=== PATIENT | male | born 1950 | race Two or more races ===

== ENCOUNTER 2017-09-07 14:56 | Emergency (ER) | payer OTHER ==
[~2017-09-07] VITALS: Ht 170.2 cm; Wt 97.2 kg
[2017-09-07] MEDS ORDERED: SODIUM CHLORIDE FLUSH 10ML SYR IVF ONE (16:00)
[2017-09-07] MEDS ORDERED: LISI-170 PO (16:04)
[2017-09-07] MEDS ORDERED: ATOR40TA PO (16:04)
[2017-09-07] MEDS ORDERED: OMEP-110 PO (16:04)
[2017-09-07 16:37] LABS: BASOPHILS # (AUTO) 0.04 x10^3/uL (0-0.1); BASOPHILS % (AUTO) 1 % (0-1); EOSINOPHILS # (AUTO) 0.11 x10^3/uL (0-0.4); EOSINOPHILS % (AUTO) 1 % (1-7); LYMPHOCYTES # (AUTO) 2.14 x10^3/uL (1-3.4); LYMPHOCYTES % (AUTO) 26 % (22-44); MD NO; MEAN CORPUSCULAR HEMOGLOBIN 31.7 pg (27.5-34.5); MEAN CORPUSCULAR VOLUME 96.1 fL (81-97); MEAN PLATELET VOLUME 9.6 fL (7.4-10.4); MONOCYTES # (AUTO) 0.78 x10^3/uL (0.2-0.8); MONOCYTES % (AUTO) 10 % (2-9); NEUTROPHILS # (AUTO) 5.13 x10^3/uL (1.8-6.8); NEUTROPHILS % (AUTO) 63 % (42-75); PLATELET COUNT 203 x10^3/uL (130-400); RED BLOOD COUNT 5.83 x10^6/uL (4.38-5.82); RED CELL DISTRIBUTION WIDTH 13.3 % (9.4-14.8)
[2017-09-07 17:33] LABS: ANION GAP 1 mmol/L (5-15); CHLORIDE 106 mmol/L (98-107)
[2017-09-07 17:34] LABS: CREATININE 1.09 mg/dL (0.7-1.3)
[2017-09-07] MEDS ORDERED: OMNIPAQUE 350 MG/ML, 100ML BOTTLE ONE (18:08)
[2017-09-07 18:50] VITALS: BP 122/63
== END 2017-09-07 18:52 | disposition home or self-care (01) ==
LOC: ED 16:04
DX: K61.1 Rectal abscess (principal)
CPT/HCPCS: 36415; 74177; 80048; 85025; 99285; Q9967